=== PATIENT | male | born 1955 | race Caucasian/White ===

== ENCOUNTER 2018-01-14 16:17 | Emergency (ER) | payer OTHER ==
[~2018-01-14] VITALS: Ht 177.8 cm; Wt 89.1 kg
[~2018-01-14 16:17] MED LIST: CIPR500T2 PO; IBUP-238 PO; PERC10TA27 PO; PROM25SU8 PO; TAMS0.4C67 PO
[2018-01-14 16:34] VITALS: BP 168/94; PULSE 87; RESP 16; TEMP 99.4; O2SAT 96
[2018-01-14] MEDS ORDERED: SODIUM CHLORIDE 0.9% FLUSH 10 ML FLUSH IV FLUSH PRN (17:00)
[2018-01-14 17:15] VITALS: RESP 16; O2SAT 97
[2018-01-14] MEDS ORDERED: ONDANSETRON HCL 4 MG/2 ML VIAL IV PUSH ONE (17:15)
[2018-01-14] MEDS ORDERED: KETOROLAC TROMETHAMINE 30 MG/ML (IVP) VIAL IV PUSH ONE (17:15)
[2018-01-14] MEDS ORDERED: LACTTAB8 PO (17:20)
[2018-01-14] MEDS ORDERED: BUPR150CR PO (17:20)
--- NOTE | 2018-01-14 17:23 | PD ---
HPI Chief Complaint: Abdominal Pain Time Seen by Provider: 16:55 Travel History International Travel<30 days: No Contact w/Intl Traveler<30days: No Traveled to known affect area: No History of Present Illness HPI Patient is a 62-year-old male presents emergency department for evaluation of lower quadrant abdominal pain and cramping associated with some hematuria dysuria for the past few hours, patient states he had a kidney stone some years ago and this feels similar just in different location. He is concerned that he might have kidney stone in his bladder. He endorses some mild nausea and one episode of nonbloody nonbilious emesis but no diarrhea. Patient states he took some pain medicine prior to coming his pain is feeling somewhat better. Denies any chest pain shortness of breath extremity pain or injury PFSH Past Medical History Genitourinary: Yes (kidneys, bladder stones) Kidney Stones: Yes Reproductive: Yes (c-pap machine ) Immunizations Current: No Sleep Apnea: Yes Tetanus Vaccination: < 5 Years Influenza Vaccination: No Past Surgical History Genitourinary Surgery: Yes (turp, lithotripsy for kidney stones) Tonsillectomy: Yes Social History Alcohol Use: Yes (daily 2-3 beers a day) Tobacco Use: Yes (/2 ppd) Substance Use: No Allergies-Medications (Allergen,Severity, Reaction): Coded Allergies: No Known Allergies (Verified Adverse Reaction, Unknown, 01/14/18) Reported Meds & Prescriptions Reported Meds & Active Scripts Active Zofran (Ondansetron HCl) 4 Mg Tab 4 Mg PO Q6HR PRN Flomax (Tamsulosin HCl) 0.4 Mg Cap 0.4 Mg PO HS [place] (Hydrocodone-Acetaminophen) 10-325 Mg Tab 1 Tab PO Q6H PRN Reported Lactobacillus Acidophilus 1 Billion Cell Tab 2 Tab PO BID Wellbutrin SR 12 HR (Bupropion HCl) 150 Mg Tab 150 Mg PO Q12HR Review of Systems Except as stated in HPI: all other systems reviewed are Neg Physical Exam Narrative GENERAL: Well-developed well-nourished, minimal discomfort SKIN: Focused skin assessment warm/dry. HEAD: Atraumatic. Normocephalic. EYES: Pupils equal and round. No scleral icterus. No injection or drainage. ENT: No nasal bleeding or discharge. Mucous membranes pink and moist. NECK: Trachea midline. No JVD. CARDIOVASCULAR: Regular rate and rhythm. No murmur appreciated. RESPIRATORY: No accessory muscle use. Clear to auscultation. Breath sounds equal bilaterally. GASTROINTESTINAL: Abdomen soft, non-tender, nondistended. Hepatic and splenic margins not palpable. No CVA tenderness, no rebound or percussive tenderness. MUSCULOSKELETAL: No obvious deformities. No clubbing. No cyanosis. No edema. NEUROLOGICAL: Awake and alert. No obvious cranial nerve deficits. Motor grossly within normal limits. Normal speech. PSYCHIATRIC: Appropriate mood and affect; insight and judgment normal. Data Data Last Documented VS Vital Signs Date Time Temp Pulse Resp B/P (MAP) Pulse Ox O2 Delivery O2 Flow Rate FiO2 01/14/18 19:21 01/14/18 19:05 72 16 97 Room Air 01/14/18 16:34 99.4 Orders Orders Complete Blood Count With Diff (01/14/18 16:46) Comprehensive Metabolic Panel (01/14/18 16:46) Lipase (01/14/18 16:46) Urinalysis - C+S If Indicated (01/14/18 16:46) Iv Access Insert/Monitor (01/14/18 16:46) Ecg Monitoring (01/14/18 16:46) Oximetry (01/14/18 16:46) Sodium Chloride 0.9% Flush (Ns Flush) (01/14/18 17:00) Ketorolac Inj (Toradol Inj) (01/14/18 17:15) Ondansetron Inj (Zofran Inj) (01/14/18 17:15) Ed Poc Ultrasound (01/14/18 ) Urine Culture (01/14/18 17:00) Oral Contrast - Adult (01/14/18 18:37) Diatrizoate Liq ( [place]astro[place] Liq) (01/14/18 18:46) Ed Discharge Order (01/14/18 19:07) Labs Laboratory Tests Test 01/14/18 17:00 01/14/18 17:25 Urine Collection Type CLEAN CATCH Urine Color DARK-YELLOW Urine Turbidity MARKED Urine pH 5.5 Urine Specific [place] 1.025 Urine Protein 100 mg/dL Urine Glucose (UA) NEG mg/dL Urine Ketones 40 mg/dL Urine Occult Blood LARGE Urine Nitrite NEG Urine Bilirubin NEG Urine Leukocyte Esterase NEG Urine RBC INNUM /hpf Urine WBC 15-19 /hpf Urine Squamous Epithelial Cells 0-5 /hpf Urine Yeast (Budding) MANY Microscopic Urinalysis Comment CULTURE INDICATED Urine Collection Time 17:00 White Blood Count 10.5 TH/MM3 Red Blood Count 4.94 MIL/MM3 Hemoglobin 14.9 GM/DL Hematocrit 43.2 % Mean Corpuscular Volume 87.4 FL Mean Corpuscular Hemoglobin 30.2 PG Mean Corpuscular Hemoglobin Concent 34.5 % Red Cell Distribution Width 13.3 % Platelet Count 309 TH/MM3 Mean Platelet Volume 6.6 FL Neutrophils (%) (Auto) 78.6 % Lymphocytes (%) (Auto) 11.6 % Monocytes (%) (Auto) 8.0 % Eosinophils (%) (Auto) 0.3 % Basophils (%) (Auto) 1.5 % Neutrophils # (Auto) 8.3 TH/MM3 Lymphocytes # (Auto) 1.2 TH/MM3 Monocytes # (Auto) 0.8 TH/MM3 Eosinophils # (Auto) 0.0 TH/MM3 Basophils # (Auto) 0.2 TH/MM3 CBC Comment DIFF FINAL Differential Comment Blood Urea Nitrogen 16 MG/DL Creatinine 0.93 MG/DL Random Glucose 96 MG/DL Total Protein 7.3 GM/DL Albumin 3.6 GM/DL Calcium Level 8.3 MG/DL Alkaline Phosphatase 63 U/L Aspartate Amino Transf (AST/SGOT) 47 U/L Alanine Aminotransferase (ALT/SGPT) 28 U/L Total Bilirubin 0.6 MG/DL Sodium Level 133 MEQ/L Potassium Level 4.5 MEQ/L Chloride Level 101 MEQ/L Carbon Dioxide Level 25.6 MEQ/L Anion Gap 6 MEQ/L Estimat Glomerular Filtration Rate 82 ML/MIN Lipase 179 U/L [facility] Medical Decision Making Medical Screen Exam Complete: Yes Emergency Medical Condition: Yes Differential Diagnosis Kidney stone, diverticulitis, bladder infection, acute abdomen highly unlikely Narrative Course Patient was room to the emergency department, certainly his signs and symptoms are suggestive of cause other than nephrolithiasis. A bedside ultrasound did show some mild hydronephrosis of the left side which could be consistent with nephrolithiasis. Patient was given Toradol, Zofran and had complete relief of the symptoms. Blood work was otherwise reassuring. Discussed with the patient that the differential still includes multiple different diagnoses the patient is feeling much better and the blood in his urine is highly suggestive of a kidney stone. At this time is feeling much better we discussed the possibility of CAT scan but at this time he would like to go home with expectant management which I think is reasonable if we assume that this is a kidney stone the patient was instructed carefully that if his symptoms were to worsen or any other new or concerning symptoms pop up he should return to the emergency department immediately for consideration of the CAT scan. Otherwise discussed symptomatic management follow-up with a urologist and return to ED criteria. He is stable for discharge per Diagnosis Primary Impression: Hematuria Referrals: Js Yusuf MD Additional Instructions: Ibuprofen 600mg Orally every 6 hours as needed for pain for one week. Med/Other Pt SpecificInfo: Prescription(s) given Scripts Ondansetron (Zofran) 4 Mg Tab 4 MG PO Q6HR Y for NAUSEA OR VOMITING, #20 TAB 0 Refills Prov: Kraig Reilly MD 01/14/18 Tamsulosin (Flomax) 0.4 Mg Cap 0.4 MG PO HS for Manage Prostate Problems, #30 CAP 0 Refills Prov: Kraig Reilly MD 01/14/18 Hydrocodone-Acetaminophen ([place]) 10-325 Mg Tab 1 TAB PO Q6H Y for PAIN, #15 TAB 0 Refills Prov: Kraig Reilly MD 01/14/18 Disposition: 01 DISCHARGE HOME Condition: Stable Kraig Reilly MD Jan 14, 2018 17:23
[2018-01-14 17:31] LABS: AUTOMATED NEUTROPHIL # 8.3 TH/MM3 (1.8-7.7); BASOPHIL # 0.2 TH/MM3 (0-0.2); BASOPHIL % 1.5 % (0.0-2.0); EOSINOPHIL % 0.3 % (0.0-4.0); HEMATOCRIT 43.2 % (39.0-51.0); HEMOGLOBIN 14.9 GM/DL (13.0-17.0); LYMPH % 11.6 % (9.0-44.0); LYMPHOCYTE # 1.2 TH/MM3 (1.0-4.8); MEAN CELL VOLUME 87.4 FL (80.0-100.0); MEAN CORPUSCULAR HEMOGLOBIN 30.2 PG (27.0-34.0); MEAN CORPUSCULAR HGB CONC 34.5 % (32.0-36.0); MEAN PLATELET VOLUME 6.6 FL (7.0-11.0); MONOCYTE # 0.8 TH/MM3 (0-0.9); NEUT % 78.6 % (16.0-70.0); PLATELET COUNT 309 TH/MM3 (150-450); RED BLOOD COUNT 4.94 MIL/MM3 (4.50-5.90); RED CELL DISTRIBUTION WIDTH 13.3 % (11.6-17.2); WHITE BLOOD COUNT 10.5 TH/MM3 (4.0-11.0)
[2018-01-14 17:41] LABS: CHLORIDE 101 MEQ/L (98-107); SODIUM (NA) 133 MEQ/L (136-145)
[2018-01-14 17:44] LABS: CALCIUM 8.3 MG/DL (8.5-10.1)
[2018-01-14 17:45] LABS: ALBUMIN 3.6 GM/DL (3.4-5.0); BICARBONATE 25.6 MEQ/L (21.0-32.0); BLOOD UREA NITROGEN 16 MG/DL (7-18); GLUCOSE,RANDOM 96 MG/DL (74-106)
[2018-01-14 17:48] LABS: ALT (GPT) 28 U/L (12-78); AST (GOT) 47 U/L (15-37); CREATININE 0.93 MG/DL (0.60-1.30); GLOMERULAR FILTRATION RATE 82 ML/MIN (>89)
[2018-01-14 17:49] LABS: TOTAL BILIRUBIN ADULT 0.6 MG/DL (0.2-1.0); TOTAL PROTEIN 7.3 GM/DL (6.4-8.2)
[2018-01-14 17:50] LABS: ALKALINE PHOSPHATASE 63 U/L (45-117)
[2018-01-14 18:20] LABS: BLOOD, URINE LARGE (NEG); GLUCOSE,URINE NEG (NEG); KETONE, URINE 40 mg/dL (NEG); NITRITE,URINE NEG (NEG); PH, URINE 5.5 (5.0-8.5); URINE LEUKOCYTE ESTERASE NEG (NEG)
[2018-01-14 18:30] LABS: BILIRUBIN, URINE NEG (NEG)
[2018-01-14 18:32] LABS: RBC, URINE INNUM /hpf (0-3); SQUAMOUS EPITHELIAL CELL URINE 0-5 /hpf (0-5); URINE COLOR DARK-YELLOW (YELLW/STRAW); WBC, URINE 15-19 /hpf (0-5)
[2018-01-14] MEDS ORDERED: DIATRIZOATE MEGLUM/DIATRIZOATE SOD 9 ML CUP ONE (18:46)
[2018-01-14 19:05] VITALS: BP 150/81; PULSE 72; RESP 16; O2SAT 97
[2018-01-14] MEDS ORDERED: TAMS5CAP PO (19:06)
[2018-01-14] MEDS ORDERED: HYDR-3366 PO (19:06)
[2018-01-14] MEDS ORDERED: ZOFR4TAB PO (19:06)
== END 2018-01-14 19:22 | disposition home or self-care (01) ==
LOC: PHED 16:17
DX: R31.9 Hematuria, unspecified (principal); R30.0 Dysuria; R11.0 Nausea; Z72.0 Tobacco use
CPT/HCPCS: 80053; 81001; 83690; 85025; 87086; 96374; 96375; 99284; J1885; J2405; Q9963